=== PATIENT | male | born 1965 | race African-American/Black ===

== ENCOUNTER 2018-07-19 21:50 | Inpatient (IN) | payer MEDICAID ==
[~2018-07-19] VITALS: Ht 172.7 cm; Wt 85.9 kg
[2018-07-20] MEDS ORDERED: SODIUM CHLORIDE 0.9% 1,000 ML IV ONE (00:19)
[2018-07-20] MEDS ORDERED: KETOROLAC 30MG/ML VIAL IV STA (00:19)
[2018-07-20 01:46] LABS: BASOPHILS % 0.4 % (0.0-2.0); HEMATOCRIT. 46.4 % (42.0-52.0); HEMOGLOBIN. 15.4 g/dL (14.0-18.0); LYMPHOCYTES % 15.1 % (20.0-50.0); MEAN CORPUSCULAR HEMOGLOBIN 30.2 pg (28.0-32.0); MEAN CORPUSCULAR VOLUME 90.9 fL (80.0-94.0); MEAN PLATELET VOLUME 8.4 fl (7.4-10.4); MONOCYTES % 7.8 % (2.0-8.0); NEUTROPHILS % 76.7 % (40.0-76.0); PLATELET 255 x1000/uL (130-400); RED CELL DISTRIBUTION WIDTH 15.3 % (11.6-14.6)
[2018-07-20 01:50] LABS: CHLORIDE 103 mEq/L (98-107); INR 1.2; PROTHROMBIN TIME 12.2 sec (9.1-11.1)
[2018-07-20 01:53] LABS: ETHANOL BLOOD < 10 mg/dL
[2018-07-20] MEDS ORDERED: IOHEXOL-300 100 ML BOTTLE ONE (03:33)
[2018-07-20] MEDS ORDERED: ONDANSETRON HCL 4MG/2ML INJ IV STA (08:00)
[2018-07-20] MEDS ORDERED: MORPHINE SULFATE 4 MG/ML CPJ (NOT FOR IM USE) IV STA (08:00)
[2018-07-20] MEDS ORDERED: CEFTRIAXONE 1 G PREMIX 50 ML IV ONE (08:15)
[2018-07-20] MEDS ORDERED: AZITHROMYCIN 500 MG in DEXT 5% WATER 250 ML IV SCH (08:15)
[2018-07-20] MEDS ORDERED: ACETAMINOPHEN 325MG TABLET PO PRN (09:45)
[2018-07-20] MEDS ORDERED: ONDANSETRON HCL 4MG/2ML INJ IV PRN (09:45)
[2018-07-20] MEDS ORDERED: DEXTROSE 50% WATER 50ML SYRINGE IV PRN (09:45)
[2018-07-20] MEDS ORDERED: IPRATROPIUM/ALBUTEROL 0.5-3(2.5)MG/3ML NEB HHN PRN (09:45)
[2018-07-20] MEDS: HYDROCODONE/ACETAMINOPHEN 5/325MG TABLET PO PRN ×2 (15:25→22:21)
[2018-07-20] MEDS ORDERED: METFORMIN HCL 500MG TABLET PO NR (17:15)
[2018-07-20] MEDS ORDERED: RISPERIDONE 1MG TABLET PO NR (17:30)
[2018-07-20] MEDS: LORAZEPAM 2MG/ML CPJ IV PRN (18:38)
[2018-07-20] MEDS: HALOPERIDOL LACTATE 5MG/ML VIAL IM PRN (18:38)
[2018-07-20 20:00] VITALS: BP 133/71
[2018-07-20] MEDS: INSULIN LISPRO 100 UNITS/ML SUBCUT SCH (21:00)
[2018-07-20] MEDS: BLOOD SUGAR DIAGNOSTIC STRIP TEST SCH (21:00)
[2018-07-20] MEDS ORDERED: ZOLPIDEM TARTRATE 5MG TABLET PO PRN (21:00)
[2018-07-20] MEDS ORDERED: METF500S7 PO (22:06)
[2018-07-20] MEDS ORDERED: warfarin (22:07)
[2018-07-20] MEDS: RISPERIDONE 1MG TABLET PO SCH (22:21)
[2018-07-20 23:07] VITALS: BP 133/71
[2018-07-21] VITALS: BP 131/76
[2018-07-21 04:00] VITALS: BP 114/71
[2018-07-21] MEDS: BLOOD SUGAR DIAGNOSTIC STRIP TEST SCH (07:20)
[2018-07-21] MEDS: INSULIN LISPRO 100 UNITS/ML SUBCUT SCH (07:50)
[2018-07-21 08:00] VITALS: BP 137/77
[2018-07-21] MEDS: RISPERIDONE 1MG TABLET PO SCH ×2 (08:37→20:36)
[2018-07-21] MEDS: AZITHROMYCIN 500 MG TABLET PO SCH (08:37)
[2018-07-21] MEDS: METFORMIN HCL 500MG TABLET PO SCH ×2 (08:43→17:41)
[2018-07-21] MEDS: MORPHINE SULFATE 4 MG/ML CPJ (NOT FOR IM USE) IV PRN (08:52)
[2018-07-21] MEDS: CEFTRIAXONE 1 G PREMIX 50 ML IV SCH (09:21)
[2018-07-21 09:54] LABS: BASOPHILS % 0.8 % (0.0-2.0); EOSINOPHILS % 0.6 % (0.0-5.0); HEMATOCRIT. 41.1 % (42.0-52.0); HEMOGLOBIN. 13.8 g/dL (14.0-18.0); LYMPHOCYTES % 26.9 % (20.0-50.0); MEAN CORPUSCULAR HEMOGLOBIN 30.7 pg (28.0-32.0); MEAN CORPUSCULAR VOLUME 91.4 fL (80.0-94.0); MEAN PLATELET VOLUME 8.9 fl (7.4-10.4); MONOCYTES % 8.4 % (2.0-8.0); NEUTROPHILS % 63.3 % (40.0-76.0); PLATELET 191 x1000/uL (130-400); RED CELL DISTRIBUTION WIDTH 15.2 % (11.6-14.6)
[2018-07-21 10:10] LABS: CHLORIDE 102 mEq/L (98-107)
[2018-07-21] MEDS ORDERED: POTASSIUM CHLORIDE 20MEQ TABLET SR PO SCH (10:45)
[2018-07-21] MEDS: LORAZEPAM 2MG/ML CPJ IV PRN (11:23)
[2018-07-21] MEDS: HALOPERIDOL LACTATE 5MG/ML VIAL IM PRN (11:23)
[2018-07-21 16:00] VITALS: BP 138/81
[2018-07-21 20:00] VITALS: BP 149/78
[2018-07-22] VITALS: BP_SYST 110; BP_SYST 149; BP_DIAS 56; BP_DIAS 78
[2018-07-22 04:00] VITALS: BP_SYST 125; BP_SYST 134; BP_DIAS 69; BP_DIAS 85
[2018-07-22 07:04] LABS: BASOPHILS % 0.7 % (0.0-2.0); EOSINOPHILS % 0.8 % (0.0-5.0); HEMATOCRIT. 40.4 % (42.0-52.0); HEMOGLOBIN. 13.4 g/dL (14.0-18.0); LYMPHOCYTES % 28.9 % (20.0-50.0); MEAN CORPUSCULAR HEMOGLOBIN 30.1 pg (28.0-32.0); MEAN CORPUSCULAR VOLUME 90.9 fL (80.0-94.0); MEAN PLATELET VOLUME 9.3 fl (7.4-10.4); MONOCYTES % 10.3 % (2.0-8.0); NEUTROPHILS % 59.3 % (40.0-76.0); PLATELET 209 x1000/uL (130-400); RED BLOOD CELL COUNT 4.45 mill/uL (4.7-6.1); RED CELL DISTRIBUTION WIDTH 15.2 % (11.6-14.6)
[2018-07-22 08:00] VITALS: BP 139/82
[2018-07-22] MEDS: RISPERIDONE 1MG TABLET PO SCH ×2 (08:24→20:28)
[2018-07-22] MEDS: AZITHROMYCIN 500 MG TABLET PO SCH (08:24)
[2018-07-22] MEDS: METFORMIN HCL 500MG TABLET PO SCH ×2 (08:24→17:12)
[2018-07-22 08:33] LABS: CHLORIDE 100 mEq/L (98-107)
[2018-07-22] MEDS: CEFTRIAXONE 1 G PREMIX 50 ML IV SCH (09:00)
[2018-07-22 12:00] VITALS: BP 137/82
[2018-07-22] MEDS ORDERED: POTASSIUM CHLORIDE 20MEQ TABLET SR PO SCH (14:45)
[2018-07-22] MEDS: ASPIRIN 81MG TABLET PO SCH (14:58)
[2018-07-22 16:00] VITALS: BP 152/82
[2018-07-22 20:00] VITALS: BP 141/74
[2018-07-23] VITALS: BP 133/78
[2018-07-23 04:00] VITALS: BP 128/74
[2018-07-23 07:17] LABS: CHLORIDE 101 mEq/L (98-107)
[2018-07-23 07:22] LABS: BASOPHILS % 0.9 % (0.0-2.0); EOSINOPHILS % 1.2 % (0.0-5.0); HEMATOCRIT. 38.4 % (42.0-52.0); HEMOGLOBIN. 12.9 g/dL (14.0-18.0); LYMPHOCYTES % 28.5 % (20.0-50.0); MEAN CORPUSCULAR HEMOGLOBIN 30.3 pg (28.0-32.0); MEAN PLATELET VOLUME 9.2 fl (7.4-10.4); MONOCYTES % 9.3 % (2.0-8.0); NEUTROPHILS % 60.1 % (40.0-76.0); PLATELET 226 x1000/uL (130-400); RED BLOOD CELL COUNT 4.26 mill/uL (4.7-6.1); RED CELL DISTRIBUTION WIDTH 14.9 % (11.6-14.6)
[2018-07-23 07:47] LABS: PHOSPHORUS 3.5 mg/dL (2.5-4.9)
[2018-07-23 08:00] VITALS: BP 127/77
[2018-07-23] MEDS ORDERED: CEFTRIAXONE 1 G PREMIX 50 ML IV SCH (09:00)
[2018-07-23] MEDS: AZITHROMYCIN 500 MG TABLET PO SCH (09:20)
[2018-07-23] MEDS: RISPERIDONE 1MG TABLET PO SCH ×2 (09:20→21:08)
[2018-07-23] MEDS: METFORMIN HCL 500MG TABLET PO SCH ×2 (09:20→16:59)
[2018-07-23] MEDS: ASPIRIN 81MG TABLET PO SCH (09:20)
[2018-07-23] MEDS: CEFTRIAXONE 1 G PREMIX 50 ML IV SCH (09:57)
[2018-07-23 10:10] LABS: T4 FREE 1.36 ng/dL (0.76-1.46)
[2018-07-23 10:33] LABS: VITAMIN B12 SERUM 285 pg/mL (211-911)
[2018-07-23 10:50] LABS: FOLIC ACID (FOLATE) SERUM > 20.00 ng/mL (>5.38)
[2018-07-23 11:56] VITALS: BP 121/73
[2018-07-23 15:33] VITALS: BP 127/82
[2018-07-23] MEDS: HYDROCODONE/ACETAMINOPHEN 5/325MG TABLET PO PRN ×2 (17:00→21:09)
[2018-07-23] MEDS ORDERED: POTASSIUM CHLORIDE 20MEQ TABLET SR PO NR (17:30)
[2018-07-23 18:06] LABS: *AMPHETAMINES SCREEN URINE NEGATIVE (NEGATIVE); *BARBITURATES SCREEN URINE NEGATIVE (NEGATIVE); *BENZODIAZEPINES SCREEN URINE NEGATIVE (NEGATIVE); *COCAINE SCREEN URINE NEGATIVE (NEGATIVE); CANNABINOID URINE SCREEN PRESUMTIVE POSITIVE (NEGATIVE)
[2018-07-23 18:07] LABS: METHADONE URINE SCREEN NEGATIVE (NEGATIVE); OPIATES URINE SCREEN NEGATIVE (NEGATIVE); PHENCYCLIDINE URINE SCREEN PRESUMTIVE POSITIVE (NEGATIVE)
[2018-07-23] MEDS: FOLIC ACID/VITAMIN B COMP W-C TABLET PO SCH (19:35)
[2018-07-23 20:00] VITALS: BP 146/79
[2018-07-23] MEDS: LACTULOSE 20G/30ML UDC PO SCH (21:17)
[2018-07-23 21:34] LABS: HEPATITIS B SURFACE ANTIGEN NEGATIVE
[2018-07-23 22:02] LABS: HEPATITIS A AB IGM NEGATIVE (NEGATIVE)
[2018-07-24] VITALS: BP 149/82
[2018-07-24 04:00] VITALS: BP 152/81
[2018-07-24] MEDS: LACTULOSE 20G/30ML UDC PO SCH ×3 (05:52→21:43)
[2018-07-24 07:33] LABS: CHLORIDE 103 mEq/L (98-107); EOSINOPHILS % 2.2 % (0.0-5.0); HEMATOCRIT. 37.7 % (42.0-52.0); HEMOGLOBIN. 12.6 g/dL (14.0-18.0); LYMPHOCYTES % 32.4 % (20.0-50.0); MEAN CORPUSCULAR HEMOGLOBIN 30.3 pg (28.0-32.0); MEAN CORPUSCULAR VOLUME 91.1 fL (80.0-94.0); MEAN PLATELET VOLUME 9.2 fl (7.4-10.4); NEUTROPHILS % 53.4 % (40.0-76.0); PLATELET 241 x1000/uL (130-400); RED BLOOD CELL COUNT 4.14 mill/uL (4.7-6.1); RED CELL DISTRIBUTION WIDTH 14.6 % (11.6-14.6)
[2018-07-24 08:00] VITALS: BP 143/89
[2018-07-24] MEDS: THIAMINE HCL 100MG TABLET PO SCH (10:36)
[2018-07-24] MEDS: ASPIRIN 81MG TABLET PO SCH (10:36)
[2018-07-24] MEDS: METFORMIN HCL 500MG TABLET PO SCH ×2 (10:36→17:24)
[2018-07-24] MEDS: FOLIC ACID/VITAMIN B COMP W-C TABLET PO SCH (10:36)
[2018-07-24] MEDS: AZITHROMYCIN 500 MG TABLET PO SCH (10:36)
[2018-07-24] MEDS: RISPERIDONE 1MG TABLET PO SCH ×2 (10:36→21:40)
[2018-07-24] MEDS: CEFTRIAXONE 1 G PREMIX 50 ML IV SCH (10:37)
[2018-07-24] MEDS: MORPHINE SULFATE 4 MG/ML CPJ (NOT FOR IM USE) IV PRN ×3 (10:48→21:40)
[2018-07-24 12:00] VITALS: BP 144/81
[2018-07-24] MEDS: CYANOCOBALAMIN 1000MCG TABLET PO SCH (14:06)
[2018-07-24] MEDS: HYDROCODONE/ACETAMINOPHEN 5/325MG TABLET PO PRN ×3 (14:07→21:26)
[2018-07-24 16:00] VITALS: BP 144/78
[2018-07-24 20:00] VITALS: BP 125/77
[2018-07-25] VITALS: BP 152/85
[2018-07-25 04:00] VITALS: BP 144/86
[2018-07-25] MEDS: MORPHINE SULFATE 4 MG/ML CPJ (NOT FOR IM USE) IV PRN (05:47)
[2018-07-25 08:00] VITALS: BP 139/85
[2018-07-25 08:17] LABS: HIV SCREEN 4G Non Reactive (Non Reactive)
[2018-07-25] MEDS: FOLIC ACID/VITAMIN B COMP W-C TABLET PO SCH (09:39)
[2018-07-25] MEDS: RISPERIDONE 1MG TABLET PO SCH (09:39)
[2018-07-25] MEDS: AZITHROMYCIN 500 MG TABLET PO SCH (09:40)
[2018-07-25] MEDS: THIAMINE HCL 100MG TABLET PO SCH (09:40)
[2018-07-25] MEDS: CYANOCOBALAMIN 1000MCG TABLET PO SCH (09:40)
[2018-07-25] MEDS: ASPIRIN 81MG TABLET PO SCH (09:40)
[2018-07-25] MEDS: METFORMIN HCL 500MG TABLET PO SCH ×2 (09:40→16:57)
[2018-07-25] MEDS: HYDROCODONE/ACETAMINOPHEN 5/325MG TABLET PO PRN ×2 (10:02→17:51)
[2018-07-25] MEDS: CEFTRIAXONE 1 G PREMIX 50 ML IV SCH (10:02)
[2018-07-25 12:00] VITALS: BP 141/82
[2018-07-25] MEDS: LACTULOSE 20G/30ML UDC PO SCH ×2 (14:57→22:00)
[2018-07-25 16:00] VITALS: BP 146/80
[2018-07-25 20:00] VITALS: BP 147/79
[2018-07-25] MEDS ORDERED: DEXTROSE 50% WATER 50ML SYRINGE IV PRN (20:45)
[2018-07-25] MEDS: BLOOD SUGAR DIAGNOSTIC STRIP TEST SCH (21:00)
[2018-07-25] MEDS: INSULIN LISPRO 100 UNITS/ML SUBCUT SCH (21:00)
[2018-07-26] VITALS: BP 133/83
[2018-07-26] MEDS: HYDROCODONE/ACETAMINOPHEN 5/325MG TABLET PO PRN ×6 (00:21→22:37)
[2018-07-26] MEDS: RISPERIDONE 1MG TABLET PO SCH ×3 (00:22→22:08)
[2018-07-26 04:00] VITALS: BP 131/82
[2018-07-26] MEDS: LACTULOSE 20G/30ML UDC PO SCH ×3 (05:31→22:08)
[2018-07-26 06:07] LABS: BASOPHILS % 1.3 % (0.0-2.0); EOSINOPHILS % 1.8 % (0.0-5.0); HEMATOCRIT. 37.4 % (42.0-52.0); HEMOGLOBIN. 12.5 g/dL (14.0-18.0); LYMPHOCYTES % 35.8 % (20.0-50.0); MEAN CORPUSCULAR HEMOGLOBIN 30.6 pg (28.0-32.0); MEAN CORPUSCULAR VOLUME 91.5 fL (80.0-94.0); MEAN PLATELET VOLUME 8.6 fl (7.4-10.4); MONOCYTES % 9.3 % (2.0-8.0); NEUTROPHILS % 51.8 % (40.0-76.0); PLATELET 280 x1000/uL (130-400); RED BLOOD CELL COUNT 4.09 mill/uL (4.7-6.1); RED CELL DISTRIBUTION WIDTH 14.9 % (11.6-14.6)
[2018-07-26 06:19] LABS: CHLORIDE 103 mEq/L (98-107)
[2018-07-26] MEDS: INSULIN LISPRO 100 UNITS/ML SUBCUT SCH ×4 (07:43→21:00)
[2018-07-26] MEDS: BLOOD SUGAR DIAGNOSTIC STRIP TEST SCH ×4 (07:43→21:00)
[2018-07-26 08:00] VITALS: BP 142/74
[2018-07-26] MEDS: METFORMIN HCL 500MG TABLET PO SCH ×2 (08:44→18:33)
[2018-07-26] MEDS: AZITHROMYCIN 500 MG TABLET PO SCH (08:44)
[2018-07-26] MEDS: CYANOCOBALAMIN 1000MCG TABLET PO SCH (08:44)
[2018-07-26] MEDS: FOLIC ACID/VITAMIN B COMP W-C TABLET PO SCH (08:45)
[2018-07-26] MEDS: THIAMINE HCL 100MG TABLET PO SCH (08:45)
[2018-07-26] MEDS: ASPIRIN 81MG TABLET PO SCH (08:45)
[2018-07-26] MEDS: CEFTRIAXONE 1 G PREMIX 50 ML IV SCH (08:45)
[2018-07-26 09:25] LABS: PROTHROMBIN TIME 10.1 sec (9.6-11.0)
[2018-07-26 12:00] VITALS: BP 133/70
[2018-07-26 16:00] VITALS: BP 138/76
[2018-07-26 20:00] VITALS: BP 128/66
[2018-07-26] MEDS ORDERED: RIFAXIMIN 200MG TABLET PO SCH (21:00)
[2018-07-26] MEDS ORDERED: LACTULOSE 20G/30ML UDC PO SCH (22:00)
[2018-07-26] MEDS: RIFAXIMIN 550 MG TABLET PO SCH (22:44)
[2018-07-27] VITALS: BP 124/75
[2018-07-27] MEDS: HYDROCODONE/ACETAMINOPHEN 5/325MG TABLET PO PRN ×3 (03:06→13:55)
[2018-07-27 04:00] VITALS: BP 134/68
[2018-07-27 05:53] LABS: HEMATOCRIT. 37.4 % (42.0-52.0); HEMOGLOBIN. 12.4 g/dL (14.0-18.0); MEAN CORPUSCULAR HEMOGLOBIN 30.3 pg (28.0-32.0); MEAN CORPUSCULAR VOLUME 91.4 fL (80.0-94.0); MEAN PLATELET VOLUME 8.7 fl (7.4-10.4); PLATELET 331 x1000/uL (130-400); RED BLOOD CELL COUNT 4.09 mill/uL (4.7-6.1); RED CELL DISTRIBUTION WIDTH 14.5 % (11.6-14.6)
[2018-07-27] MEDS: LACTULOSE 20G/30ML UDC PO SCH ×2 (06:00→13:54)
[2018-07-27 06:03] LABS: CHLORIDE 102 mEq/L (98-107)
[2018-07-27] MEDS: BLOOD SUGAR DIAGNOSTIC STRIP TEST SCH ×2 (07:31→12:13)
[2018-07-27] MEDS: INSULIN LISPRO 100 UNITS/ML SUBCUT SCH ×2 (07:50→12:13)
[2018-07-27 08:00] VITALS: BP 115/79
[2018-07-27] MEDS: FOLIC ACID/VITAMIN B COMP W-C TABLET PO SCH (08:37)
[2018-07-27] MEDS: AZITHROMYCIN 500 MG TABLET PO SCH (08:37)
[2018-07-27] MEDS: RIFAXIMIN 550 MG TABLET PO SCH (08:37)
[2018-07-27] MEDS: RISPERIDONE 1MG TABLET PO SCH (08:37)
[2018-07-27] MEDS: CYANOCOBALAMIN 1000MCG TABLET PO SCH (08:37)
[2018-07-27] MEDS: METFORMIN HCL 500MG TABLET PO SCH (08:37)
[2018-07-27] MEDS: THIAMINE HCL 100MG TABLET PO SCH (08:38)
[2018-07-27] MEDS: ASPIRIN 81MG TABLET PO SCH (08:38)
[2018-07-27] MEDS: CEFTRIAXONE 1 G PREMIX 50 ML IV SCH (08:39)
[2018-07-27 12:00] VITALS: BP 134/80
[2018-07-27 13:40] LABS: PLATELET ESTIMATE NORMAL
[2018-07-27 16:00] VITALS: BP 118/79
[2018-07-27] MEDS ORDERED: LACT10SO7 PO (16:21)
[2018-07-27] MEDS ORDERED: NEPVIT PO (16:21)
[2018-07-27] MEDS ORDERED: THIA100T72 PO (16:21)
[2018-07-27 16:40] VITALS: BP 118/79
[2018-08-05 09:11] LABS: BARBITURATE SCREEN Negative ug/mL (Cutoff:0.1); BENZODIAZEPINE SCREEN Negative ng/mL (Cutoff:20); OPIATES SCREEN Negative ng/mL (Cutoff:5); PHENCYCLIDINE SCREEN ++POSITIVE++ ng/mL (Cutoff:8)
== END 2018-07-27 18:28 | disposition home or self-care (01) | DRG 812 ==
LOC: ER 21:50 → 6EST 07-20 08:05 → EDBEDREQ 07-20 08:11 → ENRESERV 07-20 19:15
PROVIDERS: ADMIT Internal Medicine; ATTEND Internal Medicine
DX: T40.991A Poisoning by other psychodysleptics [hallucinogens], accidental (unintentional), initial encounter (principal); G92 Toxic encephalopathy; J18.9 Pneumonia, unspecified organism; R65.10 Systemic inflammatory response syndrome (SIRS) of non-infectious origin without acute organ dysfunction; S22.41XA Multiple fractures of ribs, right side, initial encounter for closed fracture; S02.81XA Fracture of other specified skull and facial bones, right side, initial encounter for closed fracture; M87.851 Other osteonecrosis, right femur; K72.90 Hepatic failure, unspecified without coma; F41.0 Panic disorder [episodic paroxysmal anxiety]; I25.10 Atherosclerotic heart disease of native coronary artery without angina pectoris; E11.9 Type 2 diabetes mellitus without complications; F16.959 Hallucinogen use, unspecified with hallucinogen-induced psychotic disorder, unspecified; Z79.01 Long term (current) use of anticoagulants; Z86.711 Personal history of pulmonary embolism; Z86.718 Personal history of other venous thrombosis and embolism; Z91.19 Patient's noncompliance with other medical treatment and regimen; Z79.84 Long term (current) use of oral hypoglycemic drugs; X58.XXXA Exposure to other specified factors, initial encounter; Y93.89 Activity, other specified; Y92.89 Other specified places as the place of occurrence of the external cause; Y99.8 Other external cause status
CPT/HCPCS: 36415; 70551; 71045; 71250; 72195; 73552; 74177; 76700; 80048; 80076; 80305; 80307; 80320; 82140; 82607; 82746; 82962; 83036; 83605; 83735; 84100; 84439; 84443; 84481; 86705; 86709; 86803; 87340; 87389; 93005; 93970; 96365; 96375; 97162; 99285; J0456; J0696; J1630; J1885; J2060; J2270; J2405; J7030; J7060; Q9967; G0480